=== PATIENT | female | born 1980 | race Two or more races ===

== ENCOUNTER 2022-06-21 06:34 | Day surgery (SDC) | payer OTHER ==
[~2022-06-21] VITALS: Ht 157.5 cm; Wt 64.9 kg
== END 2022-06-22 02:10 | disposition home or self-care (01) ==
LOC: CIR.AMB 06:34
PROVIDERS: ATTEND Surgery
DX: D24.1 Benign neoplasm of right breast (principal); N60.81 Other benign mammary dysplasias of right breast; N60.91 Unspecified benign mammary dysplasia of right breast; Z20.822 Contact with and (suspected) exposure to COVID-19; Z86.16 Personal history of COVID-19